=== PATIENT | female | born 1950 | race Caucasian/White ===

== ENCOUNTER 2018-06-09 11:14 | Emergency (ER) | payer OTHER ==
[2018-06-09] MEDS ORDERED: ALBUTEROL 3 ML DEYVIAL IH ONE (11:54)
--- NOTE | 2018-06-09 12:56 | EDPHY ---
H & P Time Seen by Provider: 06/09/18 11:39 HPI/ROS: This patient presents with left leg swelling that she 1st noticed 3 weeks ago while on vacation in [place] walking more than usual. She has history of mixed connective tissue disorder and scleroderma so thought she might be having autoimmune type causes swelling and started prednisone after consultation with her physician at [facility] ([place], [place]) via phone. The swelling did improve but since returning home June 05 from [place] after 3 visit she notes persistent swelling with mild discomfort 1/10 intensity to the posterior left calf. Her physician advised that she come to the emergency department for rule out of did potential DVT given her symptoms after a long plane flight. The patient denies any other complaints except a slight wheeze and tightness in her chest that feels similar to prior asthma. ROS: Constitutional: No fevers or chills. HEENT: No URI symptoms. Pulmonary: No pleuritic pain. No hemoptysis. No respiratory distress. No coughing Cardiovascular: No lightheadedness. No heart palpitations. GI: No complaints new line integumentary: No skin rash Musculoskeletal: No recent injuries 7 point ROS is otherwise negative besides what is mentioned in HPI and ROS Smoking Status: Never smoked Physical Exam: General Appearance: Alert, no distress. Eyes: Pupils equal and round no pallor or injection. ENT, Mouth: Mucous membranes moist. Respiratory: Mild expiratory wheeze bilaterally. No rales or rhonchi Cardiovascular: Regular rate and rhythm. No murmur gallop rub. She maintains 2+ symmetric pulses in bilateral lower extremities. Homans is negative on the left leg. She does have mild left leg swelling and posterior calf tenderness. No pitting ankle edema Gastrointestinal: Abdomen is soft and nontender, no masses, bowel sounds normal. Neurological: GCS 15 with no focal deficits. Skin: Warm and dry, no rashes. Musculoskeletal: Neck is supple nontender. Extremities are symmetrical, full range of motion. She has normal knee exam is bilateral lower extremities Psychiatric: Mood and affect are normal DIFFERENTIAL DIAGNOSIS: After history and physical exam differential diagnosis was considered for dependent edema, DVT, Rivera cyst Constitutional: Initial Vital Signs Temperature (C) 36.5 C 06/09/18 11:38 Heart Rate 67 06/09/18 11:38 Respiratory Rate 14 06/09/18 11:38 Blood Pressure 143/82 H 06/09/18 11:38 O2 Sat (%) 95 06/09/18 11:38 O2 Delivery Mode Room Air Allergies/Adverse Reactions: amoxicillin trihydrate [From Augmentin] Allergy (Verified 06/09/18 11:33) potassium clavulanate [From Augmentin] Allergy (Verified 06/09/18 11:33) prochlorperazine edisylate [From Compazine] Allergy (Verified 06/09/18 11:33) prochlorperazine maleate [From Compazine] Allergy (Verified 06/09/18 11:33) Home Medications: Medication Instructions Recorded Acetaminophen [Pain Relief] 500 mg PO 09/18/12 Albuterol [Proventil Neb] 3 ml IH Q2 #25 deyvial 09/18/12 Beclomethasone Qvar 80 [Qvar 80 1 puffs IH BIDI 09/18/12 (RX)] Doxepin HCl [SINEquan 25 MG (RX)] 25 mg PO HS 09/18/12 FLUoxetine [Prozac 20 MG (RX)] 20 mg PO DAILY 09/18/12 Folic Acid [Folic Acid 1 MG (RX)] 09/18/12 Levothyroxine [Synthroid 75 mcg 75 mcg PO DAILY06 09/18/12 (RX)] Methotrexate 09/18/12 Motilium 10mg 09/18/12 Omeprazole [Prilosec 20 mg] 20 mg PO DAILY 09/18/12 Pentoxifylline [TRENTAL] 09/18/12 predniSONE [Prednisone] 60 mg PO DAILY #22 tablet 09/18/12 MDM/Departure - MDM Imaging Results: Imaging Impressions Extremity Venous Study 06/09/18 11:54 Impression: Negative. No deep venous thrombosis. Findings discussed with Emergency Department physician, CECILIA FRIAS at 06/09/2018 12:51. Imaging: Discussed imaging studies w/ on call pharmacy technician Radiologist Medications Given: Discontinued Medications Albuterol (Proventil Neb) 3 ml IH EDNOW ONE Stop: 06/09/18 11:55 Last Admin: 06/09/18 12:13 Dose: 3 ml ED Course/Re-evaluation: Albuterol neb with resolution of mild tightness and wheeze in her chest. I counseled patient regarding her negative Doppler ultrasound explaining the patient should return emergency department for repeat ultrasound should she develop worsening symptoms over the next week despite treatment plan of ibuprofen Tylenol and elevation. She will follow up with her primary care physician she has any ongoing symptoms without worsening. I think that her mild wheezes attributable to her asthma in resolved with albuterol treatment. Not think she has pulmonary embolism, pneumonia or other acute cardiopulmonary processes at this time. - Depart Disposition: Home, Routine, Self-Care Clinical Impression: Dependent edema Mild asthma Qualifiers: Asthma persistence: intermittent Asthma complication type: uncomplicated Qualified Code(s): J45.20 - Mild intermittent asthma, uncomplicated Condition: Good Instructions: Leg Edema (ED) Additional Instructions: Diagnosis: Dependent leg edema Your ultrasound reveals no evidence of blood clots. Plan: If you developed worsening pain or swelling over the next week, you should return for a repeat ultrasound. However there is no evidence currently of blood clot in you leg. Ibuprofen Tylenol for discomfort if needed Elevate leg whenever possible Follow up with primary care physician for any ongoing symptoms Referrals: Angela Perez MD [Primary Care Provider] - As per Instructions
[2018-06-09 13:18] VITALS: BP 136/78
== END 2018-06-09 13:10 | disposition home or self-care (01) ==
LOC: CED 11:14
DX: R60.0 Localized edema (principal); J45.20 Mild intermittent asthma, uncomplicated
CPT/HCPCS: 93971-PO